=== PATIENT | female | born 1945 | race Caucasian/White ===

== ENCOUNTER 2020-01-06 16:46 | Emergency (ER) | payer MEDICARE, SELFPAY ==
[2020-01-06] VITALS (9 sets, daily range): BP systolic 115–162; BP diastolic 73–88; PULSE 56–65; RESP 16; TEMP 36.8; O2SAT 93–100
--- NOTE | 2020-01-06 17:23 | ED.GENADUL_ITS ---
Discharge Plan Disposition Patient Disposition: HOME Condition: Good Discharge Details Chief Complaint: Nk/Back Pain Clinical Impression: Abdominal pain Primary Care Provider: Shannan,Local ED Provider: Gisele Jiménez Home Meds and New Rx's Prescriptions: Continued amitriptyline 75 mg Tablet 75 mg PO DAILY RF: 0 glucosamine sulfate [Glucosamine] 500 mg Tablet 500 mg PO BID RF: 0 diazepam [Valium] 5 mg Tablet 5 mg PO PRN PRNRF: 0 oxycodone 5 mg Tablet 5 mg PO Q6H PRNRF: 0 metoprolol tartrate 25 mg Tablet 25 mg PO BID RF: 0 Eliquis 5 mg Tablet 5 mg PO BID RF: 0 d-mannose Powder 3 pwd PO DAILY RF: 0 No Action naproxen sodium [Aleve] 220 mg Capsule 220 mg PO PRNRF: 0 Discharge Instructions Instructions: Abdominal Pain (ED) Additional Instructions: Your exam today is most consistent with muscle spasm. Your CT shows enlarged gallbladder but no evidence of acute cholecystitis. For this reason, I would like for you to have an outpatient ultrasound of your gallbladder soon as possible. Please call your dormitory keeper to discuss this further and have this completed at home. We have attached a disc of your CT images that they may be able to review. You also have a lesion noted on your right kidney as discussed. Your labs are quite reassuring. He did have a trace amount of blood in your urine and you should have this followed up by your primary care. If you develop fever/chills, vomiting, inability stay hydrated, increased pain or other new/worsening symptoms please seek care urgently once again. Discharge Data Discharge Date/Time-TO BE ENTERED AT DEPARTURE: 01/06/20 21:50 Medical Decision Making Patient is a pleasant 74 year old female presenting today with c/c of quadrant abdominal pain. She reports that overall this pain has been present for approximately a month and a half. She was seen by dormitory keeper who is scheduled a CT scan of her abdomen which is actually scheduled in 2 days. However, the patient reports the pain has become much more intense and she is capable of coping with the pain any longer. Initially, the pain had been fairly low-level discomfort and more of a nuisance than severe pain. She has not noted any change in her appetite, triggers or things that can improve symptoms. Patient states that now the pain is also wrapping around to the back. Patient states that she does have chronic back pain. She has had 2 previous back surger ies and is scheduled to have a third on her lumbar spine. However, she states that this pain does not feel the same. States that typically her back pain is more on the left side and is worsened with movement. The pain she is experiencing at this time solely on the right side he has no association with movement, eating, bowel changes. She denies any fevers or chills. No nausea vomiting. No weight loss. Patient denies dysuria, hematuria, increased frequency urgency. On exam, patient appears uncomfortable. States she is occasionally having waves of pain in a.m. of the feel muscle tightening of the right side when she is having these episodes. Patient did take Valium and oxycodone that is prescribed to her for her chronic back pain prior to coming in with no relief of her discomfort. Do not appreciate any hepatomegaly. She has negative Gunderson sign. No pain over McBurney's point. No peritoneal findings or guarding on exam. Normal exam of the back no CVA. At this time, differential includes cholecystitis, hepatic mass, pancreatitis, muscle spasm, pyelonephritis vs. other. She does not have any evidence to show to be zoster, she has tenderness to palpation of her skin. Patient given 1 mg Dilaudid reports improvement of her discomfort. Labs reviewed. Leukocytosis. Stable H&H. CMP without significant abnormality. LFTs. Lipase within normal limits. Patient does have trace blood in her urine but otherwise no abnormalities. Patient began having nausea shortly after receiving IV Dilaudid. 4mg IV zofran given. FINDINGS: Lungs: Atelectasis both lungs is minimal. Heart: Visualized heart appears mildly enlarged. Mediastinal space: Small hiatal hernia. Liver: Unremarkable liver. Gallbladder and bile ducts: Gallbladder is distended but otherwise unremarkable. No biliary ductal dilation. Pancreas: Pancreas is unremarkable. Spleen: Spleen is unremarkable. Adrenals: Unremarkable bilateral adrenal glands. Kidneys and ureters: Statistically benign renal lesions for which no follow up is indicated. Otherwise unremarkable kidneys without evidence of hydronephrosis. Ureters are unremarkable. Stomach and bowel: Nonobstructed bowel. Appendix: Appendix is not definitively seen however there are no secondary signs of acute appendicitis. Intraperitoneal space: No free air or free fluid within the abdomen/pelvis. Vasculature: Patent portal veins. Normal caliber aorta. Scattered vascular calcifications. Lymph nodes: No suspicious lymphadenopathy. Bladder: Unremarkable. Reproductive: Uterus is either atrophic or surgically absent. Bones/joints: Posterior lumbar fusion hardware is grossly intact without evidence of acute complication. Diffuse osteopenia. Scattered bony degenerative changes. Soft tissues: Small fat containing umbilical hernia without evidence of acute complication. Superficial soft tissues are otherwise unremarkable. IMPRESSION: Distended gallbladder without other findings concerning for acute cholecystitis. Ultrasound would better evaluate for presence of stones. No other findings to explain the patient's right upper quadrant pain. Discussed findings with the patient. She is comfortable. States the Dilaudid made her tired but that she is not having furhter discomfort. While the CT and area of discomfort correlate to gallbladder dysfunction, her history is not. She has not noted any correlation with food. I wonder if this may in fact be a muscle spasm. However, I do feel that outpatient ultrasound for further evaluation would be appropriate. She is planning to return home tomorrow. She does have a dormitory keeper at home will be able to facilitate outpatient ultrasound. Shortly after my evaluation the patient, her nausea began once again. She was given 12 mg IV Phenergan. Spoke with the patients a few times over the phone. [phone]. Patient was very fatigued after resolution of her discomfort and was of sleep and appointment, so this is likely associated with her medication she took prior in conjunction with the medication she received here. She did clear this quite well and is requesting discharge at this time. She is reporting that she is much more comfortable and seems quite relieved with the findings thus far. She understands that she needs a outpatient ultrasound and will discuss this tomorrow with her dormitory keeper. Patient was given return precautions. She will continue with medications as previously prescribed should she have any recurrence of her discomfort. All of her questions and concerns were addressed and she is in agreement this plan. Disc of images was sent home patient HPI General Mode of arrival: ambulatory . Date/Time Provider Initiated Documentation: 01/06/20 17:01 . Limitations to Documentation: no limitations . Information obtained by: patient and RN notes reviewed . History of Present Illness 74 year old F presents to the emergency department with the chief complaint of right sided abdomen/flank pain, described as severe, with intensity rated at 10. Quality is described as aching, and is localized to the abdomen. Patient reports radiation to back. Patient started experiencing this month(s) and it has been intermittent. No relieving factors improve symptom(s), No exacerbating factors reported . Patient notes denies chest pain, cough, fever/chills, nausea/vomiting, rash, shortness of breath and weakness. Patient did receive the following treatments prior to arrival, other (valium and oxycodone) Related Data Home Medications Medication Instructions Recorded Confirmed Eliquis 5 mg PO BID 01/06/20 01/07/20 amitriptyline 75 mg PO DAILY 01/06/20 01/07/20 d-mannose 3 pwd PO DAILY 01/06/20 01/07/20 diazepam [Valium] 5 mg PO PRN PRN 01/06/20 01/07/20 glucosamine sulfate [Glucosamine] 500 mg PO BID 01/06/20 01/07/20 metoprolol tartrate 25 mg PO BID 01/06/20 01/07/20 oxycodone 5 mg PO Q6H PRN 01/06/20 01/07/20 naproxen sodium [Aleve] 220 mg PO PRN 01/07/20 Allergies Allergy/AdvReac Type Severity Reaction Status Date / Time codeine AdvReac Nausea Unverified 01/07/20 13:09 epinephrine AdvReac Other (See Unverified 01/07/20 13:09 Comment) General Stated Complaint: Nk/Back Pain JUSTYNA: 3 Review of Systems Constitutional Constitutional: Reports as per HPI, Denies chills, Denies fatigue, Denies fever(s), Denies frequent falls and Denies headache(s) Eyes Eyes: Denies change in vision ENT Ears, Nose, Mouth, and Throat: Denies headache(s) Cardiovascular Cardiovascular: Denies chest pain, Denies dyspnea and Denies dyspnea on exertion Respiratory Respiratory: Denies cough, Denies dyspnea and Denies dyspnea on exertion Gastrointestinal Gastrointestinal: Reports abdominal pain, Denies change in bowel habits and Denies fecal incontinence Genitourinary Genitourinary: Reports as per HPI, Denies urinary incontinence and Denies urinary hesitancy Musculoskeletal Musculoskeletal: Reports as per HPI, Reports back pain, Denies muscle weakness, Denies numbness, Denies radiating pain into limb, Reports stiffness and Denies tingling Integumentary/Breasts Skin/Breast: Reports as per HPI and Denies rash Neurologic Neurologic: Reports as per HPI, Denies frequent falls, Denies headache(s), Denies localized weakness, Denies numbness, Denies radicular pain, Denies sensory deficit, Denies tingling and Denies paresthesias Endocrine Endocrine: Denies fatigue FOR[facility]LY [facility], [facility] Medical History (Updated 01/07/20 @ 14:56 by Karrie Valle) Atrial fibrillation (Chronic) Back pain (Acute) H/O laminectomy (Acute) Streptococcal bacteremia (Acute) Surgical History H/O spinal fusion (Acute) History of appendectomy (Chronic) History of back surgery (Acute) Social History Smoking/Tobacco Use Status: Never Alcohol Intake: never Drug use: Occasionally Substance use type: marijuana Do you feel safe at home: Yes Do you feel safe in your relationship?: Yes Exam Const General: cooperative, healthy appearing, uncomfortable (intermittently uncomfortable, appears to have rhythmic pain ), no acute distress, well developed and well groomed Nutritional Appearance: average body habitus and well nourished Orientation: alert and awake Eyes General: appearance normal, both eyes and all related structures Neck Neck: normal visual inspection, full ROM, no lymphadenopathy and no meningeal signs Resp Effort & Inspection: normal respiratory effort and able to speak in complete sentences Auscultation: clear to auscultation bilaterally, no rales, no rhonchi and no wheezes Cardio Rate: regular rate Rhythm: regular rhythm Heart Sounds: S1 normal and S2 normal GI Inspection: normal to inspection, no edema, non-distended, no visible herniation and no visible pulsation Palpation: soft, no hepatosplenomegaly, no aortic enlargement, not firm, no guarding, no hernias, no masses, not rigid and nontender Percussion: normal to percussion Auscultation: normal bowel sounds Back/Spine/Pelvis Back: no CVA tenderness Thoracic/Lumbar Spine: thoracic and lumbar spine normal to inspection, surgical scar(s) present (well healed), thoraco-lumbar ROM normal, straight leg raise negative bilaterally, No pain with thoraco-lumbar ROM, paraspinal tenderness, No thoraco-lumbar ROM limited, No thoraco-lumbar spasm, No thoracic spinal tenderness and No straight leg raise positive Pelvis: no pain with anterior-posterior compression and no pain with lateral compression Sacroiliac joints: bilaterally nontender Skin General skin exam: no rashes or lesions noted Neuro General: patient alert and patient awake Cognition: normal cognition Speech: speech normal Gait: normal gait Motor: muscle tone normal throughout, strength 5/5 throughout, no movement abnormalities noted and no fasciculations Sensory Exam: no sensory deficits noted (no saddle paresthesias) DTR's: Rt Patellar: 2+, Lt Patellar: 2+, Rt Ankle: 2+ and Lt Ankle: 2+ Extrem General: normal to inspection, full ROM, capillary refill normal, no joint enla rgement, no pedal edema, no calf tenderness and normal gait Psych Appearance: grossly normal and well kempt Mental Status: mental status grossly normal Speech and Movement: speech and movement normal Course Vital Signs Vital signs: Vital Signs Temperature 36.8 C 01/06/20 16:57 Pulse 63 01/06/20 16:57 Respiratory Rate 16 01/06/20 16:57 Blood Pressure 157/87 H 01/06/20 16:57 Pulse Oximetry 97 01/06/20 16:57 Temperature 36.8 C 01/06/20 16:57 Temperature Source Temporal Artery Scan 01/06/20 16:57 Pulse 63 01/06/20 16:57 Respiratory Rate 16 01/06/20 16:57 Respiratory Effort Non-Labored 01/06/20 17:03 Blood Pressure 157/87 H 01/06/20 16:57 Blood Pressure Position Sitting 01/06/20 16:57 Pulse Oximetry 97 01/06/20 16:57 Oxygen Delivery Method Room Air 01/06/20 16:57 Oxygen Flow Rate 0 01/06/20 16:57 Pain Level 10 01/06/20 17:14
--- NOTE | 2020-01-06 17:38 | DI.CT_ITS ---
EXAM: CT ABDOMEN PELVIS W CLINICAL HISTORY: RUQ pain, radiates into back. TECHNIQUE: Imaging Protocol: Axial computed tomography images with coronal and sagittal reformatted images were created and reviewed CONTRAST MATERIAL: Intravenous: Omnipaque 350 Contrast volume:100 cc Oral: no COMPARISON: No exams were available for comparison FINDINGS: ABDOMEN: Lung Bases: Minimal atelectasis.. Liver: Normal density. No measurable mass. Gallbladder and biliary tract: No radiodense calculus or biliary dilation. No evidence of wall thick ening. Pancreas: Normal density, no abnormal calcifications or inflammatory process. Spleen: Normal. Kidneys: Normal size, contour and axis. No radiodense stones or obstructive uropathy. No masses seen. Bilateral cysts. Adrenal glands: No masses seen. Abdominal Aorta: Abdominal portion non-dilated. Minimal atherosclerotic change. PELVIS: Bladder: Symmetric distention, no gross wall thickening. An air bubble is present, presumably second cameron to instrumentation. Bowel: No obstruction or bowel wall thickening. Mild diverticulosis. No evidence of appendicitis. Peritoneal cavity: No ascites, collection or mesenteric inflammatory response. Bones: Hardware in the lumbar spine at the L3-4 level. No evidence of compression fractures. Degene rative disc changes. The bones appear osteoporotic. Reproductive organs: Atrophic appearing uterus versus partial hysterectomy. No ovarian cysts or mass es.. Lymph nodes: Unremarkable. Soft tissues: Small fatty containing umbilical hernia. Impression: No acute abnormality is identified.. RADIATION DOSE DELIVERED: 1,075.89mGy.cm Total DLP DATA REPOSITORY: All CT scans at this facility are submitted to the National Radiology Data Registry (NRDR) Dose Index Registry (DIR) with the [employer] [place] [employer] ([employer]). RADIATION OPTIMIZATION: All CT scans at this facility use at least one of these dose optimization te chniques: automated exposure control; mA and/or kV adjustment per patient size (includes targeted exa ms where dose is matched to clinical indication); or iterative reconstruction.
[2020-01-06] MEDS: Lactated Ringers 1,000 ML 1000 ML IV (17:52)
[2020-01-06] MEDS: HYDROmorphone 2 MG/ML VIAL 1 MG IVP (17:53)
[2020-01-06 18:08] LABS: Abs Immature Grans 0.03 10^3/uL (0.0-0.06); Absolute Basophil Count 0.03 10^3/uL (0.0-0.2); Absolute Lymphocyte Count 1.44 10^3/uL (1.2-3.4); Absolute Monocyte Count 0.74 10^3/uL (0.1-0.8); Absolute Neutrophil Count 5.28 10^3/uL (1.2-6.7); Basophils % 0.4; HCT 41.7 % (36.0-46.0); HGB 13.8 g/dL (11.2-15.7); Immature Grans % 0.4; Lymphocytes % 19.1; MCH 31.7 pg (27.0-33.0); MCHC 33.1 % (32.0-36.0); MCV 95.9 fL (80-95); MPV 10.7 fL (8.0-11.0); Monocytes % 9.8; Neutrophils % 70.3; Nucleated RBC 0 %; Platelet Count 199 10^3/uL (130-400); RBC 4.35 10^6/uL (3.93-5.22); RDW 12.6 % (11.7-14.6); WBC 7.52 10^3/uL (4.4-10.8)
[2020-01-06 18:23] LABS: ALT 36 U/L (14-59); AST 20 U/L (15-37); Albumin 4.2 g/dL (3.4-5.0); Alkaline Phosphatase 95 U/L (46-116); Anion Gap 8.9 mmol/L (3-11); BUN 21 mg/dL (7-18); Bilirubin, Total 0.6 mg/dL (0.2-1.0); CO2 28.1 mmol/L (21.0-32.0); CREATININE 0.76 mg/dL (0.55-1.02); Calcium 9.1 mg/dL (8.5-10.1); Chloride 105 mmol/L (98-107); Glucose 112 mg/dL (74-106); Lipase 68 U/L (73-393); Potassium 4.1 mmol/L (3.5-5.1); Sodium 142 mmol/L (136-145); Total Protein 7.4 g/dL (6.4-8.2)
[2020-01-06] MEDS: Ondansetron 4 MG/2 ML VIAL (18:30)
[2020-01-06] MEDS: Omnipaque 350 MG/ML 100 ML BTL IV (18:40)
[2020-01-06] MEDS: Normal Saline - Diluent 50 ML VIAL IV (18:41)
--- NOTE | 2020-01-06 19:07 | DI.VRAD_ITS ---
PROCEDURE INFORMATION: Exam: CT Abdomen And Pelvis With Contrast Exam date and time: 01/06/2020 6:44 PM Age: 74 years old Clinical indication: Other: Ruq pain, radiates into back started today; Prior surgery; Surgery date: 6+ months TECHNIQUE: Imaging protocol: Computed tomography of the abdomen and pelvis with intravenous contrast. Radiation optimization: All CT scans at this facility use at least one of these dose optimization techniques: automated exposure control; mA and/or kV adjustment per patient size (includes targeted exams where dose is matched to clinical indication); or iterative reconstruction. Contrast material: OMNIPAQUE 350; Contrast volume: 100 ml; Contrast route: INTRAVENOUS (IV); COMPARISON: No relevant images were readily available for comparison purposes. FINDINGS: Lungs: Atelectasis both lungs is minimal. Heart: Visualized heart appears mildly enlarged. Mediastinal space: Small hiatal hernia. Liver: Unremarkable liver. Gallbladder and bile ducts: Gallbladder is distended but otherwise unremarkable. No biliary ductal dilation. Pancreas: Pancreas is unremarkable. Spleen: Spleen is unremarkable. Adrenals: Unremarkable bilateral adrenal glands. Kidneys and ureters: Statistically benign renal lesions for which no follow up is indicated. Otherwise unremarkable kidneys without evidence of hydronephrosis. Ureters are unremarkable. Stomach and bowel: Nonobstructed bowel. Appendix: Appendix is not definitively seen however there are no secondary signs of acute appendicitis. Intraperitoneal space: No free air or free fluid within the abdomen/pelvis. Vasculature: Patent portal veins. Normal caliber aorta. Scattered vascular calcifications. Lymph nodes: No suspicious lymphadenopathy. Bladder: Unremarkable. Reproductive: Uterus is either atrophic or surgically absent. Bones/joints: Posterior lumbar fusion hardware is grossly intact without evidence of acute complication. Diffuse osteopenia. Scattered bony degenerative changes. Soft tissues: Small fat containing umbilical hernia without evidence of acute complication. Superficial soft tissues are otherwise unremarkable. IMPRESSION: Distended gallbladder without other findings concerning for acute cholecystitis. Ultrasound would better evaluate for presence of stones. No other findings to explain the patient's right upper quadrant pain. Dictated and Authenticated by: Pasha Nelson MD. Ordering:MANPREET Jaquez MD
--- NOTE | 2020-01-06 19:47 | NUR.NOTE ---
Nursing Note: Patient desatted to mid 70s with a great pleth. Arousable to voice, sats rise back to normal with speaking. Patient very sleepy since starting phenergan.
[2020-01-06 20:06] LABS: Bilirubin Negative (Negative); Blood Trace-intact (Negative); Clarity Clear (Clear); Glucose Negative (Negative); Ketones Negative (Negative); Leukocyte Esterase Negative (Negative); Nitrite Negative (Negative); Specific Gravity 1.015 (1.005-1.025); Urobilinogen 0.2 EU/dL (Up TO 0.2); pH 6.5 (5-8)
[2020-01-06 20:17] LABS: Bacteria Negative HPF (Negative); C & S Indicated? No; Casts Negative LPF (Negative); Crystals Few Uric Acid HPF (Negative); Epithelial Cells Few HPF (Negative); Mucus Negative (Negative); RBC Negative HPF (0-2); WBC 0-2 HPF (0-5)
--- NOTE | 2020-01-07 11:05 | W.ED.FU ---
Date of service: 01/07/20 Time of Service: 11:06 Follow Up Plan: Spoke with patient on phone after received a phone call that patient would like some more Dilaudid. Discussed patient with patient that we are unable to prescribe anything over the phone at this time. Encouraged to try alternating ice and heat and did suggest lidocaine patches or [id number] medications. Also encouraged if patient has severe increase in pain or worsening to return to the ED if needed, patient verbalized understanding.
== END 2020-01-06 21:50 | disposition home or self-care (01) ==
PROVIDERS: Emergency Provider Physician Assistant; PCP Internal Medicine
DX: R10.11 Right upper quadrant pain (principal); M54.5 Low back pain; R31.9 Hematuria, unspecified
CPT/HCPCS: 36415; 80053; 83690; 96361; 96365; 96375; 99285; 74177; 81003; 81015; 85025; J2405; J3490

== ENCOUNTER 2020-01-07 12:54 | Emergency (ER) | payer MEDICARE, SELFPAY ==
[2020-01-07 13:07] VITALS: BP 172/68; PULSE 64; RESP 18; O2SAT 99
--- NOTE | 2020-01-07 13:18 | W.ED.GENAD ---
Discharge Plan Disposition Patient Disposition: HOME Condition: Stable Discharge Details Chief Complaint: Abd Prob Clinical Impression: Muscle spasm of back Primary Care Provider: Shannan,Local ED Provider: Karrie Valle Home Meds and New Rx's Prescriptions: No Action naproxen sodium [Aleve] 220 mg Capsule 220 mg PO PRNRF: 0 amitriptyline 75 mg Tablet 75 mg PO DAILY RF: 0 glucosamine sulfate [Glucosamine] 500 mg Tablet 500 mg PO BID RF: 0 diazepam [Valium] 5 mg Tablet 5 mg PO PRN PRNRF: 0 oxycodone 5 mg Tablet 5 mg PO Q6H PRNRF: 0 metoprolol tartrate 25 mg Tablet 25 mg PO BID RF: 0 Eliquis 5 mg Tablet 5 mg PO BID RF: 0 d-mannose Powder 3 pwd PO DAILY RF: 0 Discharge Instructions Instructions: Muscle Spasm (ED) Additional Instructions: Continue using lidocaine patches as discussed. Alternate ice and heat. Take Aleve as needed. Try massage. Follow up with primary care provider in 3-5 days. Return to ED sooner if any worsening fever, shortness of breath, chest pain or concerns. Increase oral fluids. Please take Tylenol or Ibuprofen with food every 4-6 hours as needed for pain and swelling. Discharge Data Discharge Date/Time-TO BE ENTERED AT DEPARTURE: 01/07/20 15:12 Medical Decision Making 74-year-old female presents to the ER for second day in a row with chief complaint of right flank muscle spasms. Was seen yesterday had a CT abdomen pelvis which showed a possible dilated gallbladder. They recommended ultrasound to rule out gallstones. Patient states that she went home and had a good night and woke up this morning and spasms return after putting on her shirt. I did speak with her personally on the phone prior to her arrival and encouraged her to get lidocaine patches which she has in place upon arrival. She does state that those have felt helped somewhat for the first time. She denies any fever, nausea vomiting, diarrhea or any other complaints. She does have a history of spinal surgery and has had surgery in 1994 and again some years later. She reports that she is due for another surgery she does have rods in place in her spine. She does normally walk with a cane. Denies any loss of bowel or bladder control, no numbness or tingling around her groin area. She did receive Dilaudid which was somewhat helpful she reports. At this time I will order the ultrasound to rule out Cholelithiasis, will give her hydromorphone 0.5 mg IM and 10 mg of cyclobenzaprine p.o. 1433: Preliminary result received from cleaning technician, negative for cholelithiasis or gallstones. 1443: Patient re-evaluation. Appears more comfortable states pain is still 7 out of 10 discussed ultrasound results patient verbalized understanding. Plan is to discharge patient home she does have the appropriate medications at home. Instructions to follow-up with PCP when returning home. HPI General Mode of arrival: wheelchair. Date/Time Provider Initiated Documentation: 01/07/20 12:55. Limitations to Documentation: no limitations. Information obtained by: patient. HPI Narrative: 74-year-old female presents to the ER for second day in a row with chief complaint of right flank muscle spasms. Was seen yesterday had a CT abdomen pelvis which showed a possible dilated gallbladder. They recommended ultrasound to rule out gallstones. Patient states that she went home and had a good night and woke up this morning and spasms return after putting on her shirt. I did speak with her personally on the phone prior to her arrival and encouraged her to get lidocaine patches which she has in place upon arrival. She does state that those have felt helped somewhat for the first time. She denies any fever, nausea vomiting, diarrhea or any other complaints. She does have a history of spinal surgery and has had surgery in 1994 and again some years later. She reports that she is due for another surgery she does have rods in place in her spine. She does normally walk with a cane. Denies any loss of bowel or bladder control, no numbness or tingling around her groin area. She did receive Dilaudid which was somewhat helpful she reports. Related Data Home Medications Medication Instructions Recorded Confirmed Eliquis 5 mg PO BID 01/06/20 01/07/20 amitriptyline 75 mg PO DAILY 01/06/20 01/07/20 d-mannose 3 pwd PO DAILY 01/06/20 01/07/20 diazepam [Valium] 5 mg PO PRN PRN 01/06/20 01/07/20 glucosamine sulfate [Glucosamine] 500 mg PO BID 01/06/20 01/07/20 metoprolol tartrate 25 mg PO BID 01/06/20 01/07/20 oxycodone 5 mg PO Q6H PRN 01/06/20 01/07/20 naproxen sodium [Aleve] 220 mg PO PRN 01/07/20 Allergies Allergy/AdvReac Type Severity Reaction Status Date / Time codeine AdvReac Nausea Unverified 01/07/20 13:09 epinephrine AdvReac Other (See Unverified 01/07/20 13:09 Comment) General Stated Complaint: Abd Prob JUSTYNA: 3 Review of Systems Narrative: Constitutional: Negative for weight loss, alert and oriented, well groomed, normal body habitus, appears comfortable. HEENT: Denies trauma, headaches, blurry vision, nasal discharge, sore throat, trouble swallowing. Chest: Denies chest pain, palpitations, irregular rhythm, hypertension. Respiratory: Denies Shortness of breath, cough, hemoptysis. GI: Denies abdominal pain, nausea, vomiting, diarrhea, constipation. : Denies dysuria, hematuria, flank pain, rectal bleeding. Musculoskeletal: Is complaining of right flank muscle spasm. Neuro: Denies dizziness, blurry vision, weakness, syncope, headache or facial numbness. Hematologic: Denies easy bruising, intolerance to heat or cold, hair loss. [facility] Medical History Atrial fibrillation (Chronic) Back pain (Acute) H/O laminectomy (Acute) Streptococcal bacteremia (Acute) Surgical History H/O spinal fusion (Acute) History of appendectomy (Chronic) History of back surgery (Acute) Social History Smoking/Tobacco Use Status: Never Alcohol Intake: never Drug use: Occasionally Substance use type: marijuana Do you feel safe at home: Yes Do you feel safe in your relationship?: Yes Exam Narrative Exam Narrative: Constitutional: Alert and oriented x3. Appears stated age. Normal body habitus. Head: Normocephalic, no trauma. Eyes: Pupils PERRLA, Red reflex noted, EOM's intact. Eyelids symmetrical without lesions, discharge, or swelling. ENT: Bilateral TM's WNL, External ear normal to inspection, no mastoid TTP, swelling, or erythema, Nasal turbinates WNL, no nasal discharge. Normal dentition, Posterior pharynx WNL, no exudate. Chest: RRR, Normal S1, S2, distal pulses intact. Resp: Lungs clear to auscultation bilaterally, no wheezes, rales, or rhonchi. Abdomen: Soft nondistended nontender to palpation all 4 quadrants. Normoactive bowel sounds. Musculoskeletal: Normal gait, 5/5 strength to all four extremities. Does have right flank paraspinous muscle spasm, does have palpable muscle spasm and tension, no midline tenderness with palpation, crepitus or step-off. Skin: No suspicious rashes or lesions. Capillary refill less than 2 sec. Neurologic: Cranial nerves II-XII intact. Alert and oriented x 3. DTR's intact. Hematologic/Lymphatic: No ecchymosis, no lymphadenopathy. Course Vital Signs Vital signs: Vital Signs Pulse 64 01/07/20 13:07 Respiratory Rate 18 01/07/20 13:07 Blood Pressure 172/68 H 01/07/20 13:07 Pulse Oximetry 99 01/07/20 13:07 Pulse 64 01/07/20 13:07 Respiratory Rate 18 01/07/20 13:07 Blood Pressure 172/68 H 01/07/20 13:07 Blood Pressure Position Supine 01/07/20 13:07 Pulse Oximetry 99 01/07/20 13:07 Oxygen Delivery Method Room Air 01/07/20 13:07 Oxygen Flow Rate 0 01/07/20 13:07
--- NOTE | 2020-01-07 13:30 | DI.US_ITS ---
EXAM: US ABDOMEN LIMITED CLINICAL HISTORY: R/O gallstones, here with right flank pain TECHNIQUE: Ultrasound performed using standard protocol. COMPARISON: No exams were available for comparison FINDINGS: A limited exam of the gallbladder was performed. There is no sonographic Gunderson sign. No gallstone s, gallbladder wall thickening or pericholecystic fluid is seen. The common bile duct measures 4.5 m illimeters. IMPRESSION: Unremarkable gallbladder. DATA REPOSITORY:
[2020-01-07] MEDS: HYDROmorphone 2 MG/ML VIAL 0.5 MG IM (13:56)
[2020-01-07] MEDS: Cyclobenzaprine 10 MG TAB PO (13:56)
[2020-01-07 17:06] VITALS: BP 143/73; PULSE 61; RESP 16; O2SAT 95
== END 2020-01-07 15:12 | disposition home or self-care (01) ==
PROVIDERS: Emergency Provider Registered Nurse Emergency
DX: M62.830 Muscle spasm of back (principal)
CPT/HCPCS: 96372; 99284; 76705